=== PATIENT | male | born 1980 | race Caucasian/White ===

== ENCOUNTER 2017-03-03 21:35 | Emergency (ER) | payer OTHER ==
[~2017-03-03] VITALS: Ht 175.3 cm; Wt 86.2 kg
[~2017-03-03 21:35] MED LIST: BACTRIM DS 8001 TA1 PO; BACTRIM DS 8001 TAB PO; FLEXERIL10 MG PO; LORTAB 5/500 501 TAB PO; NOMEDS; PHENERGAN 25MG.25 M1 PO; PREDNISONE 10MG10 MG PO; PYRIDIUM 200MG200 MG PO; VICODIN 5/500 T1 TAB PO; VOLTAREN75 MG PO
--- NOTE | 2017-03-03 21:50 | Emergency Room Report ---
History of Present Illness Time Seen by Yosef Presenting Problem in Triage Pt arrived:Walked Presenting Problem:LEFT ABDOMINAL PAIN. Onset of symptoms date/time:03/03/17 or onset unknown for: Treatment Prior to Arrival: BIOTECHNOLOGIST Provided by: Sepsis Risk Assessment: Temp: 98.5 B/P: 124/87 MAP: 99 Pulse: 98 Resp: 14 Recent fever? N Clinical Suspician of Infection? N Mental Status: 1 - Regular (Normal Baseline) Sepsis Risk:Low Sepsis Risk Have you (or family members/close friends) recently traveled outside the [place]? N If Yes, where/when: Have you had exposure to infectious disease within the past month? TB? Other? Specify: Source patient, RN notes reviewed, family, old records Exam Limitations no limitations Comment lt sided abd pain with nausea but no diarrhea or other c/o - no rash Cardiac Chest Pain Chest pain indicative of cardiac No Timing/Duration this evening Severity moderate ALLERGIES Coded Allergies: Penicillins (11/03/16) acetaminophen (From LORTAB) (11/03/16) cefaclor (11/03/16) hydrocodone (From LORTAB) (11/03/16) Home Medications Active Scripts SULFAMETHOXAZOLE W/TRIMETHOPRI (Bactrim Ds Tab) 1 TABLET PO BID #20 TAB Prov: 11/03/16 Reported Medications No Home Medications (NO HOME MEDICATIONS) History Medical History General CAD? No Angina: No [place]: No Hypertension? No Hyperlipidemia? No CHF? No DVT? No PE? No COPD? No Asthma? No Anemia? No GERD? No Gastric ulcers? No GI Bleed? No Hernia? No Thyroid Problems? No Hypothyroidism? No CVA? No Seizures? No Diabetes? No Renal Insuffiency? No End Stage Renal Disease? No UTI? No Stones? No BPH? No GB Disease: No Nephritic Syndrome? No Asplenia? No Hepatitis? No Sickle Cell Disease? No Arthritis? No Migraines? No Cataracts? No Glaucoma? No MRSA? No HIV? No TB? No Anxiety? No Depression? No Cancer? No Immunization Hx DT/Tetanus 1996 Surgical Hx Previous Surgery?Y RYLAN CARPEL TUNNEL Back Surgery RIGHT RIB Family History Family Hx Diabetes Yes CAD Yes Hypertension Yes Hyperlipidemia Yes Cancer Yes TB No Social History Smoking Hx Smoker: Current Every Day Smoker Tobacco: Yes Type Cigarettes Packs/day < 1 Pack Alcohol Alcohol: No Drugs none Review of Systems All Other Systems Reviewed and Negative Constitutional denies fever Eyes denies drainage ENT denies: ear discharge. Respiratory denies cough, denies shortness of breath, denies wheezing Cardiovascular denies chest pain, denies palpitations, denies syncope Gastrointestinal see HPI, abdominal pain, denies diarrhea, nausea, denies vomiting Genitourinary denies: dysuria, frequency, hesitancy, hematuria. Musculoskeletal denies back pain, denies joint pain, denies joint swelling, denies neck pain Skin denies rash Psychiatric/Neurological denies headache, denies seizure Physical Exam Vital Signs Vital Signs Date Time Temp Pulse Resp B/P Pulse O2 O2 Flow FiO2 Ox Delivery Rate 03/03 2224 75 14 128/74 97 03/03 2140 98.5 98 14 124/87 98 - WBC >12,000 or <4,000 or 10% bands? 2 or more SIRS Criteria Met? B/P:128/74 MAP:99 Creatinine >2.0? UA output<0.5ml/kg/hr for 2 hrs? Platelet count >100,000? Lactate >2.0mmol/1? INR >1.2 or PTT > than 60 sec? Evidence of Organ Dysfunction? Provider documented clinical suspician of infection? N Sepsis Criteria Count: 1 Sepsis Risk: Low Sepsis Risk General Appearance no apparent distress Eye Exam - bilateral eye PERRL, bilateral eye EOMI Ear, Nose, Throat normal ENT inspection Neck supple Respiratory Status No: respiratory distress. Lung Sounds bilateral: lungs clear. Cardiovascular regular rate/rhythm Peripheral Pulses Pulses normal Yes Gastrointestinal soft, no organomegaly, no pulsatile mass, no guarding, no rebound, tenderness Back no CVA tenderness, no vertebral tenderness Extremities normal inspection Strength 4 Upper Ext (L), 4 Upper Ext (R), 4 Lower Ext (L), 4 Lower Ext (R) Neurologic alert, linseed oil order filler II-XII nml as tested, no motor/sensory deficits Reflexes Reflexes normal No Mental status normal mood/affect Skin no rash cons.w/shingles Medical Decision Making LABS/Meds/Orders Pt receiving controlled substance in ED? No Results/Orders Laboratory Tests 03/03/17 2150: Sodium 139, Potassium 4.1, Chloride 103, Carbon Dioxide 30, BUN 9, Creatinine 1.0, Estimated Creat Clear 124, Estimated GFR (MDRD) 85, Glucose 110 H, Calcium 9.0, Total Bilirubin 0.8, AST 8 L, ALT 33, Alkaline Phosphatase 119 H, Total Protein 7.3, Albumin 3.9, Globulin 3.4 H, Albumin/Globulin Ratio 1.1, Amylase 53, Lipase 105, WBC 9.4, RBC 5.04, Hgb 15.1, Hct 44.8, MCV 88.8, RDW 14.4, Plt Count 205, Gran % 70.2, Gran # 6.6, Lymphocytes % 25.7, Monocytes % 4.1, Lymphocytes # 2.4, Monocytes # 0.4, PUBS MCHC 33.7, MCH 30.0, Urine Color YELLOW , Urine Appearance CLEAR, Urine pH 7.0, Ur Specific [place] 1.015, Urine Protein NEGATIVE, Urine Ketones NEGATIVE, Urine Blood NEGATIVE, Urine Nitrate NEGATIVE, Urine Bilirubin NEGATIVE, Urine Urobilinogen 2.0, Ur Leukocyte Esterase NEGATIVE , Urine RBC NONE, Urine WBC OCC, Ur Squamous Epith Cells OCC, Amorphous Sediment 2+, Urine Bacteria 1+, Urine Glucose NEGATIVE Current Medication Orders Sig/Dinorah Start time Last Medication Dose Route Stop Time Status Admin Sodium Chloride 10 ML PRN PRN 03/03 2200 AC IV 03/04 2148 Orders Procedure Date/time Status DIET-NOTHING BY MOUTH 03/[address] ABD & PELVIS W/O CONTRAST 03/[address] SCAN REQ 03/03 2150 Complete IV SALINE LOCK 03/03 2148 Active URINALYSIS/COMPLETE 03/03 2148 Complete LIPASE 03/03 2148 Complete CBC WITH AUTO DIFF 03/03 2148 Complete CHEM 12 PROFILE 03/03 2148 Complete AMYLASE 03/03 2148 Complete XRAY/CT/US XRAY/CT/US CT abdomen, pelvis CT interpretation by discussed w/radiologist Time results known: 2243 CT Results abnormal (see report) Departure Departure Time of Disposition 2242 Disposition DC Home or Self Care(routine) Clinical Impression Primary Impression: Epiploic appendagitis Condition STABLE Referrals Irlanda VALENCIA,Tres (Family) Patient Instructions DI for Abdominal Pain-Adult Additional Instructions use meds and see pcp for follow up Discharge Counseling Counseled pt/family regarding diagnosis, test results, medications/RX, follow up needs Prescriptions Current Visit Scripts Levofloxacin (Levaquin 500MG) 500 MG PO DAILY #10 TAB ED Critical Care Critical Care No at 2250
[2017-03-03 22:09] LABS: HEMOGLOBIN 15.1 g/dL (14.1-18.0)
[2017-03-03 22:10] LABS: LYMPH # 2.4 K/mm3 (0.7-4.5); LYMPH % 25.7 % (10-50)
[2017-03-03 22:11] LABS: URINE BILIRUBIN - DIPSTICK NEGATIVE (NEG); URINE BLOOD NEGATIVE (NEG)
[2017-03-03 22:42] LABS: URINE SQUAMOUS CELLS OCC #/hpf (OCC)
[2017-03-03] MEDS ORDERED: LEVAQUIN500 MG PO (22:49)
[2017-03-03 23:00] VITALS: BP 128/74
--- NOTE | 2017-03-04 06:13 | RADIOLOGY REPORT PS360 ---
CT ABD PELVIS W/O CONTRAST CLINICAL INDICATION: Left flank pain FLANK PAIN ORDERING PHYSICIAN: Gregory Skaggs MD PATIENT AGE: 37 years COMPARISON: 07/07/2010 TECHNIQUE: Axial images obtained with sagittal and coronal reformats. PROCEDURE: Oral Contrast: None IV Contrast: None . FINDINGS: Minimal atelectatic change left lung base. The liver, gallbladder, kidneys, adrenal glands, spleen, and pancreas have an unremarkable unenhanced CT appearance. No evidence of appendicitis, intestinal obstruction, or free air. There is mild stranding of the pericolic fat in the descending colon area. No obvious diverticula in this region. No colon wall thickening. Epiploic appendagitis is considered. No free air or abscess. Urinary bladder has an unremarkable appearance. Calcification noted in the right scrotal area and may be due to phleboliths There are postsurgical changes at T11, T12, and L1. IMPRESSION: 1. Mild straightening of the pericolic fat in the proximal descending colon region possibly related to Epiploic appendagitis 2. Otherwise negative CT abdomen pelvis. No obstructing ureteral calculi evident
== END 2017-03-03 23:27 | disposition home or self-care (01) ==
LOC: ER 21:35
PROVIDERS: Emergency Medicine
DX: K63.89 Other specified diseases of intestine (principal); Z88.0 Allergy status to penicillin; Z88.6 Allergy status to analgesic agent; F17.210 Nicotine dependence, cigarettes, uncomplicated